=== PATIENT | female | born 2000 | race Caucasian/White ===

== ENCOUNTER 2022-12-04 11:45 | Emergency (ER) | payer MEDICAID ==
[~2022-12-04] VITALS: Ht 167.6 cm; Wt 75.0 kg
[2022-12-04 11:49] VITALS: BP 149/75
[2022-12-04] MEDS ORDERED: AMOX1TAB16 MT (15:27)
== END 2022-12-04 23:16 | disposition home or self-care (01) ==
LOC: ER 11:45
DX: J02.9 Acute pharyngitis, unspecified (principal); R50.9 Fever, unspecified; J45.909 Unspecified asthma, uncomplicated
CPT/HCPCS: 81025; 99282